=== PATIENT | female | born 1995 | race Two or more races ===

== ENCOUNTER 2019-09-13 21:40 | Emergency (ER) | payer SELFPAY ==
[~2019-09-13] VITALS: Ht 167.6 cm; Wt 68.0 kg
[2019-09-13 21:45] VITALS: BP 130/72
== END 2019-09-13 22:18 | disposition left against medical advice (07) ==
LOC: EDBD 21:40 → ER 21:44
DX: F41.9 Anxiety disorder, unspecified (principal); Z53.21 Procedure and treatment not carried out due to patient leaving prior to being seen by health care provider